=== PATIENT | female | born 1970 | race Caucasian/White ===

== ENCOUNTER 2018-02-07 21:05 | Emergency (ER) | payer OTHER ==
[~2018-02-07] VITALS: Ht 172.7 cm; Wt 106.1 kg
[2018-02-07] MEDS ORDERED: TROKENDI XR25 MG (21:23)
== END 2018-02-07 22:24 | disposition home or self-care (01) ==
LOC: ER 21:05
DX: R10.31 Right lower quadrant pain (principal); F06.4 Anxiety disorder due to known physiological condition